=== PATIENT | male | born 1945 | race Caucasian/White ===

== ENCOUNTER 2016-04-18 12:46 | Emergency (ER) | payer BC, OTHER ==
[~2016-04-18] VITALS: Ht 177.8 cm; Wt 100.0 kg
[2016-04-18 12:54] VITALS: TEMP 36.3; Ht 177.8 cm; Wt 100.0 kg
[2016-04-18] MEDS ORDERED: CIPR-255 PO (14:25)
[2016-04-18] MEDS ORDERED: TAMS0.4C38 PO (14:25)
--- NOTE | 2016-04-18 14:43 | EMERGENCY ROOM VISIT NOTE ---
History Report prepared by Prateek: Phyllis Vogel Under the Supervision of: Dr. Selvin Petersen M.D. First contact with patient: 13:34 Chief Complaint: URINARY SYMPTOMS Stated Complaint: PAIN IN SCROTUM, UTI Nursing Triage Summary: having urinary retention had a recent catheter to empty bladder. that catheter was removed. pt now unable to void. was placed on 2 different antibiotics and given "maxflo" medications not working History of Present Illness The patient is a 70 year old male who presents to the Emergency Room with complaints of persistent urinary retention over the past week. Currently, his lower abdomen feels distended, and he rates his discomfort as a 10/10. Since the time of onset, the patient has only been able to void a minimal amount of urine at a time, though he constantly feels that he needs to urinate. He did visit his doctor and was placed on Ciprofloxacin as well as Maxflo as his UA was positive for infection, however, patient states that he has not had any improvement of his symptoms. This morning, as the patient was still unable to void, he visited his PCP's office. During his visit, the patient had relief after 1700 cc of urine was drained via catheter, however, he has not been able to urinate since the catheter was removed (since leaving PCP office), and he is now having suprapubic abdominal pain, as well as pain to his scrotum. He denies recent fevers, chills, chest pain, shortness of breath, nausea, vomiting or diarrhea. The patient does have a history of prostate disease, and he has followed up with a urologist in the past. Source of History: patient Onset: over the past week Position: abdomen Symptom Intensity: 9/10 Quality: other (urinary retention) Timing: other (persistent) Modifying Factors (Relieving): other (catheter) Associated Symptoms: + abdominal pain, No SOB, No chest pain, No chills, No diarrhea, No fevers, No nausea, No vomiting Review of Systems See HPI for pertinent positives & negatives. A total of 10 systems reviewed and were otherwise negative. Past Medical & Surgical Medical Problems: (1) Prostate disease (2) Rectal polyp Family History Abdominal aortic aneurysm (AAA) Social History Smoking Status: Never Smoker Marital Status: Housing Status: lives with significant other Occupation Status: employed Current/Historical Medications Scheduled Cholecalciferol (Vitamin D3), 5,000 UNITS PO DAILY Ciprofloxacin Hcl (Cipro), 500 MG PO BID Ciprofloxacin Hcl (Cipro), 1 TAB PO BID Doxycycline Hyclate (Vibramycin), 100 MG PO DAILY Fexofenadine Hcl (Adriane Allergy), 180 MG PO DAILY Naproxen (Naprosyn), 500 MG PO BID Tamsulosin Hcl (Flomax), 0.4 MG PO BID Tamsulosin Hcl (Flomax), 0.4 MG PO HS Allergies Coded Allergies: Metronidazole (Unverified Allergy, Unknown, HIVES WITH TOPICAL, 04/18/16) Physical Exam Vital Signs Date Time Temp Pulse Resp B/P Pulse Ox O2 Delivery O2 Flow Rate FiO2 04/18/16 14:51 89 18 143/79 94 Room Air 04/18/16 12:54 36.3 108 18 148/86 96 Physical Exam GENERAL: Patient is a healthy-appearing well-nourished HEAD: Normocephalic atraumatic EYES: Ocular movements intact pupils equal and react to light OROPHARYNX mucous membranes are moist no exudates present no erythema or edema present NECK: Supple no nuchal rigidity CHEST: Good equal expansion LUNGS: Clear and equal to auscultation CARDIAC: Normal S1 and S2 ABDOMEN: Tenderness to the suprapubic area. BACK: No CVA tenderness EXTREMITIES: No pain upon palpation normal muscle strength in all groups no clubbing cyanosis or edema NEURO: Patient is following commands is answering questions appropriately. Alert and oriented x3 Cranial Nerves 2-12 grossly intact Medical Decision & Procedures Laboratory Results Test 04/18/16 13:52 Urine Color YELLOW Urine Appearance CLEAR (CLEAR) Urine pH 5.5 (4.5-7.5) Urine Specific [place] 1.001 (1.000-1.030) Urine Protein NEG (NEG) Urine Glucose (UA) NEG (NEG) Urine Ketones NEG (NEG) Urine Occult Blood 3+ (NEG) Urine Nitrite NEG (NEG) Urine Bilirubin NEG (NEG) Urine Urobilinogen NEG (NEG) Urine Leukocyte Esterase TRACE (NEG) Urine WBC (Auto) 1-5 /hpf (0-5) Urine RBC (Auto) 0-4 /hpf (0-4) Urine Hyaline Casts (Auto) 0 /lpf (0-5) Urine Epithelial Cells (Auto) 0-5 /lpf (0-5) Urine Bacteria (Auto) 1+ (NEG) Urine Mucus PRESENT (NONE PRSENT) Date/Time Source Procedure Growth Status 04/18/16 13:52 Urine,Catheterized Urine Culture - Final NO GROWTH - LESS THAN 1,000 COLONIES/ML Complete Labs reviewed by ED physician. ED Course 1415: Past medical records reviewed. The patient was evaluated in room B10. A complete history and physical examination was performed. 1420: Patient had relief after a Kirby catheter was placed and 1200 cc of urine was drained. 1430: I discussed my findings of the patient's exam with him. Discharge instructions were also discussed at this time. He will follow up with urology. He verbalized his understanding and agreement with the treatment plan, and the patient is now ready for disposition. Medical Decision Differential diagnosis: Etiologies such as renal colic, appendicitis, diverticulitis, mesenteric ischemia, aortic pathology, infections, inflammatory bowel disease, PUD, biliary pathology, UTI, as well as others were entertained. This is a 70-year-old male who presents emergency department complaining of urinary retention. A Kirby catheter was placed with immediate improvement the patient's symptoms. The patient has been on a week supply of Cipro. Has I'm concerned about prostatitis I will continue the patient on Cipro for the next 3 weeks however I stressed the need for follow-up with urology. The patient is going to keep Kirby in place and will follow-up. Patient and are in agreement with the treatment plan. Impression Primary Impression: Urinary retention Scribe Attestation The scribe's documentation has been prepared under my direction and personally reviewed by me in its entirety. I confirm that the note above accurately reflects all work, treatment, procedures, and medical decision making performed by me. Departure Information Dispostion Home / Self-Care Prescriptions Tamsulosin Hcl (FLOMAX) 0.4 Mg Cap 0.4 MG PO HS for 21 Days, #21 CAP Prov: Selvin Petersen MD 04/18/16 Ciprofloxacin Hcl (CIPRO) 500 Mg Tab 1 TAB PO BID for 21 Days, #42 TAB Prov: Selvin Petersen MD 04/18/16 Referrals Srinivasan Schmidt M.D. (PCP) Forms HOME CARE DOCUMENTATION FORM, IMPORTANT VISIT INFORMATION Patient Instructions ED Catheter Care Kirby, ED Retention Urinary Male, My [facility] Additional Instructions NEED FOLLOW UP WITH UROLOGY Culture results are usually available in approx 48 hours You have been examined and treated today on an emergency basis only. This is not a substitute for, or an effort to provide, complete comprehensive medical care. It is impossible to recognize and treat all injuries or illnesses in a single emergency department visit. It is therefore important that you follow up closely with Dr Schmidt. Call as soon as possible for an appointment. Thank you for your time and consideration. I look forward to speaking with you again soon. Please don't hesitate to call us if you have any questions.
[2016-04-18 14:51] VITALS: BP 143/79; PULSE 89; O2SAT 94
[2016-04-18 14:59] LABS: URINE APPEARANCE CLEAR (CLEAR); URINE BILIRUBIN NEG (NEG); URINE COLOR YELLOW; URINE NITRITE NEG (NEG); URINE PH 5.5 (4.5-7.5); URINE SPECIFIC GRAVITY 1.001 (1.000-1.030); UROBILINOGEN NEG (NEG)
[2016-04-18 15:11] LABS: MANUAL MICROSCOPIC REQUIRED? NO; REVIEW REQ? YES
[2016-04-18 15:38] LABS: URINE EPITHELIAL CELL AUTO 0-5 /lpf (0-5)
[2016-04-18 15:39] LABS: URINE MUCUS PRESENT (NONE PRSENT)
[2016-04-18 15:45] LABS: ZZURINE CULT IF INDIC CATH YES
== END 2016-04-18 14:52 | disposition home or self-care (01) ==
LOC: C.EDB 12:46
DX: R33.9 Retention of urine, unspecified (principal); Z86.010 Personal history of colon polyps; Z79.899 Other long term (current) drug therapy

== ENCOUNTER 2016-04-26 01:17 | Emergency (ER) | payer BC, OTHER ==
[~2016-04-26] VITALS: Ht 177.8 cm; Wt 91.0 kg
[~2016-04-26 01:17] MED LIST: CIPR-255 PO; TAMS0.4C38 PO
[2016-04-26 01:20] VITALS: BP 176/111; PULSE 13; TEMP 36.5; O2SAT 96; Ht 177.8 cm; Wt 91.0 kg
[2016-04-26 01:49] LABS: URINE APPEARANCE CLEAR (CLEAR); URINE BILIRUBIN NEG (NEG); URINE COLOR YELLOW; URINE NITRITE NEG (NEG); URINE SPECIFIC GRAVITY 1.009 (1.000-1.030); UROBILINOGEN NEG (NEG); ZZURINE CULT IF INDIC CATH NO
[2016-04-26 01:55] LABS: MANUAL MICROSCOPIC REQUIRED? NO; REVIEW REQ? NO
--- NOTE | 2016-04-26 23:23 | EMERGENCY ROOM VISIT NOTE ---
History First contact with patient: 01:26 Chief Complaint: URINARY SYMPTOMS Stated Complaint: PAIN,URINARY TRACT BLOCKAGE Nursing Triage Summary: Patient c/o difficulty urinating. Catheter removed yesterday; had it for reoccuring UTI's. History of Present Illness The patient is a 70 year old male who presents to the Emergency Room with complaints of suprapubic abdominal pain and difficulty urinating tonight. The patient has been seen previously in the ER for similar symptoms, and is currently on a long-term dosing of Cipro for prostatitis. The patient went to his urologist earlier today, and he had a Kirby catheter removed lightheaded in place for about one week. The patient was able to void in their office following removal of the catheter, and they were attempting a trial without the catheter to see how well he would do. The patient states that after about 8 hours he had notable discomfort and only small amounts of voiding at home. The patient was not able to sleep tonight, prompting his presentation to the department. He rates his current discomfort a 9/10. Review of Systems More than 10 systems were reviewed and otherwise negative with the exception of history of present illness. Past Medical/Surgical History Medical Problems: (1) Prostate disease (2) Rectal polyp Family History Abdominal aortic aneurysm (AAA) Social History Smoking Status: Never Smoker Marital Status: Housing Status: lives with significant other Occupation Status: employed Current/Historical Medications Scheduled Cholecalciferol (Vitamin D3), 5,000 UNITS PO DAILY Ciprofloxacin Hcl (Cipro), 500 MG PO BID Ciprofloxacin Hcl (Cipro), 1 TAB PO BID Doxycycline Hyclate (Vibramycin), 100 MG PO DAILY Fexofenadine Hcl (Adriane Allergy), 180 MG PO DAILY Naproxen (Naprosyn), 500 MG PO BID Tamsulosin Hcl (Flomax), 0.4 MG PO BID Tamsulosin Hcl (Flomax), 0.4 MG PO HS Allergies Coded Allergies: Metronidazole (Unverified Allergy, Unknown, HIVES WITH TOPICAL, 04/18/16) Physical Exam Vital Signs Date Time Temp Pulse Resp B/P Pulse Ox O2 Delivery O2 Flow Rate FiO2 04/26/16 01:20 36.5 13 18 176/111 96 Room Air Physical Exam VITALS: Vitals are noted on the nurse's note and reviewed by myself. Vital signs stable. GENERAL: Well-developed, well-nourished, white male, who is in no acute distress and resting comfortably. Patient is cooperative with the examination. HEAD: Normocephalic atraumatic. HEART: Regular rate and rhythm without murmurs gallops or rubs. LUNGS: Clear to auscultation bilaterally without wheezes, rales or rhonchi. No retractions or accessory muscle use. ABDOMEN: Positive normal bowel sounds x 4. Soft with positive suprapubic tenderness. No CVA tenderness. No rebound or guarding. Medical Decision & Procedures Laboratory Results Test 04/26/16 01:40 Urine Color YELLOW Urine Appearance CLEAR (CLEAR) Urine pH 5.0 (4.5-7.5) Urine Specific [place] 1.009 (1.000-1.030) Urine Protein NEG (NEG) Urine Glucose (UA) NEG (NEG) Urine Ketones NEG (NEG) Urine Occult Blood NEG (NEG) Urine Nitrite NEG (NEG) Urine Bilirubin NEG (NEG) Urine Urobilinogen NEG (NEG) Urine Leukocyte Esterase NEG (NEG) ED Course Physical exam and history were performed. Nursing notes and EMR were reviewed. Patient appears to have difficulty urinating after his Kirby catheter was removed bladder scan was performed and he does have greater than 600 residual volume in the bladder. A Kirby catheter was placed to a leg bag, and the patient drained nearly 1000 mL of urine. This was sent for culture. The patient had complete resolution of his discomfort after placement of his catheter. I suspect his pain is from the urinary tension. The patient is to continue his Cipro and call urology in the morning for further care and management. He is just voiced understanding. The chart was completed utilizing [employer] Speech Voice Recognition Software. Grammatical errors, random word insertions, pronoun errors, and incomplete sentences are an occasional consequence of this system due to software limitations, ambient noise, and hardware issues. Any formal questions or concerns about the content, text, or information contained within the body of this dictation should be directly addressed to the provider for clarification. . Medical Decision Differential diagnosis includes, but is not limited to: UTI, prostatitis, BPH, urinary obstruction, and others Impression Primary Impression: Symptoms involving urinary system Additional Impression: Prostate disease Departure Information Dispostion Home / Self-Care Condition GOOD Referrals Srinivasan Schmidt M.D. (PCP) Forms HOME CARE DOCUMENTATION FORM, IMPORTANT VISIT INFORMATION Patient Instructions My [facility] Additional Instructions You were seen and evaluated today on an emergency basis only. This is not a substitute for, or an effort to provide, complete comprehensive medical care. It is not possible to recognize and treat all injuries or illnesses in a single emergency department visit. For this reason it is recommended that you followup with your urology office by telephone in the morning to arrange a follow-up visit. Continue your medications as prescribed. You are welcome to return to the emergency department anytime with new, worsening, or concerning symptoms. Problem Qualifiers
== END 2016-04-26 02:20 | disposition home or self-care (01) ==
LOC: C.EDB 01:18
DX: R30.0 Dysuria (principal); N41.9 Inflammatory disease of prostate, unspecified; Z79.899 Other long term (current) drug therapy

== ENCOUNTER 2016-05-07 06:40 | Emergency (ER) | payer BC, OTHER ==
[~2016-05-07] VITALS: Ht 177.8 cm; Wt 91.9 kg
[2016-05-07 06:45] VITALS: TEMP 36.5; Ht 177.8 cm; Wt 91.9 kg
[2016-05-07] MEDS ORDERED: KETOROLAC TROMETHAMINE 60 MG/2 ML VIAL IM STA (07:09)
[2016-05-07] MEDS ORDERED: FINA5TAB PO (07:10)
[2016-05-07] MEDS ORDERED: KETOROLAC TROMETHAMINE 15 MG/ML VIAL IM ONE (07:15)
[2016-05-07] MEDS ORDERED: KETOROLAC TROMETHAMINE 60 MG/2 ML VIAL ONE (07:25)
--- NOTE | 2016-05-07 07:30 | EMERGENCY ROOM VISIT NOTE ---
ED Visit Note First contact with patient: 06:43 Patient evaluated with resident. 71-year-old with enlarged prostate and recent UTI on Cipro presents to emergency department for Kirby change. He denies any systemic complaints, no fevers no chills no flank pain and hematuria. Kirby was changed without incident and patient provided leg bag. On examination at 7: 30 AM patient appears comfortable and QUESTIONS were answered.
--- NOTE | 2016-05-07 07:32 | EMERGENCY ROOM VISIT NOTE ---
History First contact with patient: 06:45 Chief Complaint: CATHETER REPLACEMENT Stated Complaint: BLOCKED DUPREE CATHETER - EXTREME PAIN History of Present Illness The patient is a 71 year old male who presents to the Emergency Room with complaints of catheter obstruction. Patient has had ongoing issues with urinary retention secondary to enlarged prostate. He has been catheterized for the past 1 month after having a UTI. He has been having his catheter managed by his PCP and his urologist. He is currently on treatment for a UTI with Ciprofloxacin. He also takes Tamsulosin and Finasteride. Today he complains of low catheter output for the past 1 day. He has also had increasing aching 9/10 suprapubic pain that does not radiate to the back or flanks. He denies pus or blood in his catheter bag. He did have his catheter obstructed 1 week ago and it was irrigated in his PCPs office. He notes that he is due to travel in the next week and was suppose to have the catheter replaced in the next 3 days. Otherwise he has no symptoms. He has not had any fevers. His appetite has been good. He has been eating and drinking at baseline. He has not abdominal symptoms, no diarrhea and no constipation. Review of Systems A 10 point review of systems was negative unless stated above. Past Medical/Surgical History Medical Problems: (1) Prostate disease (2) Rectal polyp Family History Abdominal aortic aneurysm (AAA) Colorectal Ca - Father Social History Smoking Status: Never Smoker Smokeless Tobacco Use: No Alcohol Use: occasionally (1 unit wine per week) Drug Use: none Marital Status: Housing Status: lives with significant other Occupation Status: retired Current/Historical Medications Scheduled Cholecalciferol (Vitamin D3), 5,000 UNITS PO DAILY Ciprofloxacin Hcl (Cipro), 500 MG PO BID Doxycycline Hyclate (Vibramycin), 100 MG PO DAILY Fexofenadine Hcl (Adriane Allergy), 180 MG PO DAILY Finasteride (Proscar), 5 MG PO DAILY Naproxen (Naprosyn), 500 MG PO BID Tamsulosin Hcl (Flomax), 0.4 MG PO BID Allergies Coded Allergies: Metronidazole (Verified Allergy, Intermediate, HIVES WITH TOPICAL, 05/07/16) Physical Exam Vital Signs Date Time Temp Pulse Resp B/P Pulse Ox O2 Delivery O2 Flow Rate FiO2 05/07/16 06:45 36.5 94 18 140/84 99 Room Air Pain Rating (0-10): 9 Physical Exam Constitutional: Vital signs as above were reviewed. Eyes: Pupils equal, round, and reactive to light. Extraocular muscles are intact. No proptosis. No photophobia. ENT: Mucous membranes are moist. Oropharynx is clear. No sinus tenderness. TMs are clear bilaterally. Cardiovascular: Heart with a regular rate and rhythm. Pulses are palpable and symmetric in all 4 extremities. No pedal edema appreciated. Respiratory: Lungs clear to auscultation bilaterally. No wheezes, rales, or rhonchi appreciated. No accessory muscle use. No retractions. No increased work of breathing. GI: Abdomen soft, nontender, nondistended. Normal active bowel sounds. No abdominal hernias appreciated. No rebound. No guarding. : No CVA tenderness appreciated. Suprapubic tenderness to palpation Uncircumcised penis, dupree catheter in place Catheter bag contents; minimal output; clear, no pus, no blood, no clot Musculoskeletal: No midline cervical or vertebral tenderness. No gross deformities. No bony tenderness. No calf swelling or tenderness. Integumentary: Warm, dry, no rashes appreciated. Neurological: Patient awake, alert, and oriented x 3. Cranial nerves two through 12 grossly intact. Lymph: No cervical lymphadenopathy appreciated. Medical Decision & Procedures Medications Administered Medications (Trade) Dose Ordered Sig/Adrianna Route Start Time Stop Time Status Last Admin Dose Admin Ketorolac Tromethamine (Toradol Inj) 60 mg STK-MED ONCE .ROUTE 05/07/16 07:25 05/07/16 07:27 DC 05/07/16 07:29 60 MG Procedure Bladder scan - 650 cc ED Course 06:45 - Patient evaluated Orders for Bladder Scan, Toradol 15 mg IM, Replace Catheter 07:15 - Precepted with Dr. Deepak Mccarthy 07:20 - Catheter replaced; clear yellow urine output noted Patient notes immediate relief 15 mg Toradol administered 07:30 - Discharge paperwork completed Patient discharged in stable condition Medical Decision A thorough history was obtained, physical examination performed and the EMR was reviewed. The case was reviewed multiple times over with Dr. Deepak Mccarthy during the patient's ED visit. Patient presents with sudden onset of low Dupree catheter output as well as suprapubic pain. Differentials include catheter obstruction, UTI, Prostatitis, dehydration. Bladder scan did show 650 of residual volume. Changing of catheter noted immediate output of clear yellow urine. We did not repeat UA as patient is currently on antibiotic treatment and he does not have signs or symptoms of new or worsening infection. Patient did require small amount of Toradol for pain control. He did note relief from a combination of Toradol and replacement of the Dupree catheter. Patient was discharged in stable condition. He was advised to consider intermitted self-catheterization in case he does have access to a medical facility. He was also discharged with a copy of the Dupree catheter care instructions. Impression Primary Impression: Obstructed Dupree catheter Additional Impression: Enlarged prostate Departure Information Dispostion Home / Self-Care Condition GOOD Referrals Srinivasan Schmidt M.D. (PCP) Patient Instructions ED Catheter Care K[place]i, [facility] Additional Instructions We replaced your Dupree Catheter in the ED today. You did have some pain so we treated you with an intramuscular injection of Toradol (a non-steroidal anti- inflammatory) Because you are already on antibiotics for a urinary tract infection, we will not make any changes regarding this. Please continue all your other usual medicines. You mentioned upcoming travel so we would recommend you discuss self-catheterization with your PCP or urologist in case this becomes an issue while abroad. If your symptoms fail to improve, acutely worsen, please seek medical attention immediately by either calling your primary care provider or going to your nearest emergency department. Otherwise, please see your primary care provider in 3-5 days to ensure that your symptoms continue to improve. It was a pleasure to be involved in your care and we wish you all the best. Problem Qualifiers
[2016-05-07 07:40] VITALS: BP 130/75; PULSE 85; O2SAT 99
[2016-05-07] MEDS ORDERED: FEXO1TAB49 PO (13:22)
[2016-05-07] MEDS ORDERED: CIPR-255 PO (13:22)
[2016-05-07] MEDS ORDERED: NAPR-1169 PO (13:22)
[2016-05-07] MEDS ORDERED: TAMS0.4C38 PO (13:22)
[2016-05-07] MEDS ORDERED: DOXY100C2 PO (13:22)
[2016-05-07] MEDS ORDERED: CHOL20007 PO (13:22)
== END 2016-05-07 07:41 | disposition home or self-care (01) ==
LOC: C.EDB 06:41
DX: T83.098A Other mechanical complication of other urinary catheter, initial encounter (principal); X58.XXXA Exposure to other specified factors, initial encounter; N40.1 Benign prostatic hyperplasia with lower urinary tract symptoms; R10.30 Lower abdominal pain, unspecified; Z86.010 Personal history of colon polyps; Z82.49 Family history of ischemic heart disease and other diseases of the circulatory system; Z80.0 Family history of malignant neoplasm of digestive organs

== ENCOUNTER 2016-06-04 03:52 | Emergency (ER) | payer BC ==
[~2016-06-04] VITALS: Ht 165.1 cm; Wt 92.8 kg
[~2016-06-04 03:52] MED LIST changes: +CHOL20007 PO; +DOXY100C2 PO; +FEXO1TAB49 PO; +FINA5TAB PO; +NAPR-1169 PO
[2016-06-04 03:59] VITALS: TEMP 36.4; Ht 165.1 cm; Wt 92.8 kg
--- NOTE | 2016-06-04 04:33 | EMERGENCY ROOM VISIT NOTE ---
History Report prepared by Prateek: Audi Mcgregor Under the Supervision of: Dr. Vargas Quiros M.D. First contact with patient: 04:04 Chief Complaint: URINARY SYMPTOMS Stated Complaint: NOT URINATING,HIGH PAIN IN ABDOMEN History of Present Illness The patient is a 71 year old male who presents to the Emergency Room with complaints of worsening urinary retention and lower abdominal pain that began a couple days prior to arrival. The patient is also complaining of rectal pain and constipation. This is the fourth time the patient has come to the emergency department for urinary retention. He had a Kaplan catheter in place for the last month, and had it removed a couple days ago. The patient is currently taking Naprosyn for his symptoms. He denies any recent traumatic events, or fevers. Source of History: patient Onset: A couple days prior to arrival Position: other (Bladder) Quality: other (Urinary retention) Timing: worsening Associated Symptoms: + abdominal pain, No fevers Review of Systems See HPI for pertinent positives & negatives. A total of 10 systems reviewed and were otherwise negative. Past Medical & Surgical Medical Problems: (1) Prostate disease (2) Rectal polyp Family History Abdominal aortic aneurysm (AAA) Social History Smoking Status: Never Smoker Alcohol Use: occasionally Drug Use: none Marital Status: Housing Status: lives with significant other Occupation Status: retired Current/Historical Medications Scheduled Cholecalciferol (Vitamin D3), 5,000 UNITS PO DAILY Ciprofloxacin Hcl (Cipro), 500 MG PO BID Docusate Sodium (Colace), 1 CAP PO BID Doxycycline Hyclate (Vibramycin), 100 MG PO DAILY Fexofenadine Hcl (Adriane Allergy), 180 MG PO DAILY Finasteride (Proscar), 5 MG PO DAILY Naproxen (Naprosyn), 500 MG PO BID Tamsulosin Hcl (Flomax), 0.4 MG PO BID Allergies Coded Allergies: Metronidazole (Verified Allergy, Intermediate, HIVES WITH TOPICAL, 06/04/16) Physical Exam Vital Signs Date Time Temp Pulse Resp B/P Pulse Ox O2 Delivery O2 Flow Rate FiO2 06/04/16 03:59 36.4 88 20 149/89 98 Room Air Physical Exam GENERAL: Patient is very uncomfortable appearing and in moderate to severe distress. HEENT: No acute trauma, normocephalic atraumatic, mucous membranes moist, no nasal congestion, no scleral icterus. NECK: No stridor, no adenopathy, no meningismus, trachea is midline. LUNGS: No dyspnea. Clear to auscultation and equal bilaterally. No wheeze, no rhonchi. HEART: Regular rate and rhythm. No murmurs, rubs, gallops appreciated. ABDOMEN: There is mild tenderness to palpation over the suprapubic area. Full bladder to palpation. Soft, bowel sounds positive, no peritonitis. BACK: No midline tenderness, no CVA tenderness EXTREMITIES: Normal motion all extremities, no cyanosis, no edema. NEUROLOGIC: Alert and oriented, no acute motor or sensory deficits, no focal weakness, cranial nerves grossly intact. SKIN: No rash, no jaundice, no diaphoresis. Medical Decision & Procedures Laboratory Results Test 06/04/16 00:00 Urine Color YELLOW Urine Appearance CLEAR (CLEAR) Urine pH 5.0 (4.5-7.5) Urine Specific [place] 1.008 (1.000-1.030) Urine Protein NEG (NEG) Urine Glucose (UA) NEG (NEG) Urine Ketones NEG (NEG) Urine Occult Blood NEG (NEG) Urine Nitrite NEG (NEG) Urine Bilirubin NEG (NEG) Urine Urobilinogen NEG (NEG) Urine Leukocyte Esterase TRACE (NEG) Urine WBC (Auto) /hpf (0-5) Urine RBC (Auto) /hpf (0-4) Urine Hyaline Casts (Auto) /lpf (0-5) Urine Epithelial Cells (Auto) /lpf (0-5) Urine Bacteria (Auto) (NEG) Urine RBC 0-4 /hpf (0-4) Urine WBC 5-10 /hpf (0-5) Urine Epithelial Cells 0-5 /lpf (0-5) Urine Bacteria NEG (NEG) Urine Yeast BUD W/ HYPHAE (NONE PRSENT) Laboratory results as reviewed by me. Medications Administered Medications (Trade) Dose Ordered Sig/Adrianna Route Start Time Stop Time Status Last Admin Dose Admin Magnesium Citrate (Citrate Of Magnesia Soln) 296 ml NOW ONCE PO 06/04/16 05:45 06/04/16 05:46 DC 06/04/16 06:01 296 ML Fluconazole (Diflucan Tab) 150 mg NOW ONCE PO 06/04/16 05:45 06/04/16 05:46 DC 06/04/16 06:01 150 MG ED Course 0406: The patient was evaluated in room B6. A complete history and physical exam was performed. 0545: Ordered Fluconazole 150 mg PO, Magnesium Citrate 296 mL PO. 0551: I reevaluated the patient at this time. He had 1500 mL of urine in Kaplan bag. He states that he will call his urologist to discuss antibiotics, length of Kaplan placement, and if she should be using home straight catheterizations. I discussed results and discharge instructions: he verbalized understanding and agreement. The patient is ready for discharge. Medical Decision 71 yr old male arrives with inability to urinate. Complicated story with Kaplan in place for most of last 2 months due to urinary retention of unclear etiology , initially felt to be UTI, then possibly prostate. Following closely with Urologist in [place] with removal of kaplan on . Now having constipation as well. No back pain nor neuro deficits otherwise thus I do not feel emergent imaging required, and already has MRI planned as outpatient of Prostate. Kaplan placed with 1.5 L UOP. Will clear out bowels with MagCitrate followed by BID colace (notes constipation has been chronic issue). Stable and looks well. Aware RTED if further issues. Discussed need to follow up with Urologist to discuss plan. As some yeast in UA will give diflucan to take at home. Impression Primary Impression: Acute urinary retention Additional Impressions: Constipation Yeast UTI Scribe Attestation The scribe's documentation has been prepared under my direction and personally reviewed by me in its entirety. I confirm that the note above accurately reflects all work, treatment, procedures, and medical decision making performed by me. Departure Information Dispostion Home / Self-Care Prescriptions Docusate Sodium (COLACE) 100 Mg Cap 1 CAP PO BID for 15 Days, #30 CAP Prov: Vargas Quiros M.D. 06/04/16 Referrals Srinivasan Schmidt M.D. (PCP) Patient Instructions ED Catheter Care Kaplan, My [facility] Additional Instructions Call your urologist today to discuss... Time that Kaplan stays in place Antibiotics Whether you should be doing self catheterizations Follow up. Problem Qualifiers Additional Impressions: Constipation Constipation type: unspecified constipation type Qualified Codes: K59.00 - Constipation, unspecified
[2016-06-04 04:42] LABS: URINE APPEARANCE CLEAR (CLEAR); URINE BILIRUBIN NEG (NEG); URINE COLOR YELLOW; URINE NITRITE NEG (NEG); URINE SPECIFIC GRAVITY 1.008 (1.000-1.030); UROBILINOGEN NEG (NEG)
[2016-06-04 04:49] LABS: MANUAL MICROSCOPIC REQUIRED? YES; REVIEW REQ? NO
[2016-06-04 05:08] LABS: URINE RBC 0-4 /hpf (0-4)
[2016-06-04 05:09] LABS: URINE BACTERIA NEG (NEG)
[2016-06-04 05:10] LABS: ZZURINE CULT IF INDIC CATH YES
[2016-06-04] MEDS ORDERED: DOCU-94 PO (05:36)
[2016-06-04] MEDS ORDERED: MAGNESIUM CITRATE 296 ML/BTL PO ONE (05:45)
[2016-06-04] MEDS ORDERED: FLUCONAZOLE 50 MG TAB PO ONE (05:45)
[2016-06-04 06:16] VITALS: BP 132/81; PULSE 81; O2SAT 99
--- NOTE | 2016-06-06 15:12 | Pharmacy Progress Note ---
ED Pharmacist Culture FollowUp Date of Service: Jun 06, 2016. Patient seen in the ER on 06/04/16 for urinary retention + lower abdominal pain. Patient has a h/o urinary retention, BPH, and has had a Kirby cath in place for ~1 month but was removed ~2 days prior to ER presentation. Patient denied fevers at visit. He did not have classic symptoms of UTI as he could not urinate (therefore no dysuria, frequency). He did have suprapubic tenderness on PE along w/ bladder fullness. The patient was straight cath for 1.5L urine. UA and Urine Cx performed. UA = clear, - N, trace LE, 5-10 WBC, 0-5 epis, + budding yeast. Urine Cx is growing yeast not dana albicans. The patient was given a dose of Diflucan in the ER and a second dose to take at home. Diflucan however would not cover this organism. Difficult to say whether this organism represents benign colonization vs fungiuria w/ cystitis as UTI symptoms not present due to retention and cath placement. Case reviewed w/ Dr Seay. I contacted the patient at home. The patient still denies fever and chills. He has a catheter in place therefore not able to report typically UTI symptoms. The patient told me he sees Myesha MEJIA at [facility] ([phone]). I contact the Urology office and gave a brief summary of his last ER visit and forwarded the UA and Urine Cx results to the office via fax ([phone]) per Dr Seay's request. The Urology office stated they would f/u with the patient.
== END 2016-06-04 06:19 | disposition home or self-care (01) ==
LOC: C.EDB 03:54
DX: K59.00 Constipation, unspecified (principal); N39.0 Urinary tract infection, site not specified; B37.9 Candidiasis, unspecified; Z79.899 Other long term (current) drug therapy

== ENCOUNTER → 2017-02-06 | Outpatient (CLI) | payer BC ==
--- NOTE | 2017-02-06 14:32 | DIAGNOSTIC IMAGING REPORT ---
CHEST 2 VIEWS ROUTINE HISTORY: 71 years-old Male R09.89 chronic dyspnea COMPARISON: None available TECHNIQUE: PA and lateral views of the chest FINDINGS: Cardiomediastinal and hilar silhouettes are within normal limits. There is no pneumothorax, pleural effusion, focal airspace consolidation or overt pulmonary edema. Bones of the chest appear grossly intact. There are moderate degenerative changes of the shoulders, only partially imaged. IMPRESSION: No acute cardiopulmonary process. The above report was generated using voice recognition software. It may contain grammatical, syntax or spelling errors. Electronically signed by: Michael Blackman M.D. 02/06/2017 2:31 PM Dictated Date/Time: 02/06/2017 2:29 PM
== END | disposition home or self-care (01) ==
LOC: C.RAD1850 14:18
PROVIDERS: ATTEND Student in an Organized Health Care Education/Training Program
DX: R09.89 Other specified symptoms and signs involving the circulatory and respiratory systems (principal)

== ENCOUNTER 2021-07-05 08:35 | Observation (INO) ==
--- NOTE | 2021-06-16 10:08 | PAT Medication Instructions ---
Medication Instructions Date of Service June 16, 2021 Home Medications acetaminophen 500 mg capsule 500 mg PO BID azelaic acid 15 % topical gel 1 applic TOPICAL BID cholecalciferol (vitamin D3) 125 mcg (5,000 unit) tablet (Vitamin D3) 125 mcg PO QAM ciclopirox 0.77 % topical cream 1 applic TOPICAL BID clindamycin phosphate 1 % topical solution 1 applic TOPICAL DAILY PRN doxycycline hyclate 50 mg tablet 50 mg PO QPM finasteride 5 mg tablet 5 mg PO QAM fluoxetine 20 mg tablet 40 mg PO QAM hydrocortisone 2.5 % topical cream 1 applic TOPICAL BID PRN levocetirizine 5 mg tablet (Xyzal) 5 mg PO QPM mometasone 50 mcg/actuation nasal spray 2 spray INTRANASAL DAILY PRN multivitamin 1 tab PO QAM omeprazole 20 mg tablet,delayed release 20 mg PO QAM rosuvastatin 10 mg tablet 10 mg PO QPM tamsulosin 0.4 mg capsule 0.4 mg PO BID STOP taking 24 hours before surgery azelaic acid 15 % topical gel 1 applic TOPICAL BID ciclopirox 0.77 % topical cream 1 applic TOPICAL BID clindamycin phosphate 1 % topical solution 1 applic TOPICAL DAILY PRN hydrocortisone 2.5 % topical cream 1 applic TOPICAL BID PRN DO NOT take the morning of surgery cholecalciferol (vitamin D3) 125 mcg (5,000 unit) tablet (Vitamin D3) 125 mcg PO QAM multivitamin 1 tab PO QAM Take morning of surgery With a small sip of water, OTHERWISE NOTHING TO EAT OR DRINK AFTER MIDNIGHT: acetaminophen 500 mg capsule 500 mg PO BID (okay to take up to 4 hours prior to surgery if needed) finasteride 5 mg tablet 5 mg PO QAM fluoxetine 20 mg tablet 40 mg PO QAM mometasone 50 mcg/actuation nasal spray 2 spray INTRANASAL DAILY PRN (if needed) omeprazole 20 mg tablet,delayed release 20 mg PO QAM tamsulosin 0.4 mg capsule 0.4 mg PO BID Take evening before surgery acetaminophen 500 mg capsule 500 mg PO BID doxycycline hyclate 50 mg tablet 50 mg PO QPM levocetirizine 5 mg tablet (Xyzal) 5 mg PO QPM mometasone 50 mcg/actuation nasal spray 2 spray INTRANASAL DAILY PRN (if needed) rosuvastatin 10 mg tablet 10 mg PO QPM tamsulosin 0.4 mg capsule 0.4 mg PO BID Other Notes If you have any questions please call us at [phone] or [phone] or [phone] or [phone]
--- NOTE | 2021-06-19 09:39 | Anesthesiology Consultation ---
Date of Service June 19, 2021 Assessment & Plan (1) Encounter for pre-operative examination: - Patient acceptable risk for surgery pending surgeon-ordered PCP preop evaluation scheduled 06/26 (Dr. Artis). - COVID screening: Per assessment on 06/19: Travel screen negative, no known COVID-19 positive contacts or current COVID-19 related symptoms. Patient vaccinated. Surgeon arranging preop COVID testing. Awaiting results. Chart Review Chart Review: Patient seen in Pre Admission Testing Teaching & Discussion Pre-Anesthesia Teaching/Discussion Notes: Instructed NPO after midnight before surgery,except medications with 15 cc of water. Medication instructions provided according to the PAT guidelines. History Surgery Operation Date: 07/05/21 11:20 Proposed Procedures p Right Total Shoulder Arthroplasty - Adebayo Raymond MD Height/Weight Height: 5 ft 9 in Weight: 95.7 kg Allergies Allergy/AdvReac Type Severity Reaction Status Date / Time metronidazole [From Metrogel] Allergy Rash Verified 06/15/21 12:39 midazolam [From Versed] AdvReac Confusion Verified 06/15/21 12:39 Medications Home Medications Medication Instructions Recorded Confirmed Last Taken acetaminophen 500 mg capsule 500 mg PO BID 06/15/21 06/15/21 Unknown azelaic acid 15 % topical gel 1 applic TOPICAL BID 06/15/21 06/15/21 Unknown cholecalciferol (vitamin D3) 125 125 mcg PO QAM 06/15/21 06/15/21 Unknown mcg (5,000 unit) tablet (Vitamin D3) ciclopirox 0.77 % topical cream 1 applic TOPICAL BID 06/15/21 06/15/21 Unknown clindamycin phosphate 1 % topical 1 applic TOPICAL DAILY PRN 06/15/21 06/15/21 Unknown solution doxycycline hyclate 50 mg tablet 50 mg PO QPM 06/15/21 06/15/21 Unknown finasteride 5 mg tablet 5 mg PO QAM 06/15/21 06/15/21 Unknown fluoxetine 20 mg tablet 40 mg PO QAM 06/15/21 06/15/21 Unknown hydrocortisone 2.5 % topical cream 1 applic TOPICAL BID PRN 06/15/21 06/15/21 Unknown levocetirizine 5 mg tablet (Xyzal) 5 mg PO QPM 06/15/21 06/15/21 Unknown mometasone 50 mcg/actuation nasal 2 spray INTRANASAL DAILY PRN 06/15/21 06/15/21 Unknown spray multivitamin 1 tab PO QAM 06/15/21 06/15/21 Unknown omeprazole 20 mg tablet,delayed 20 mg PO QAM 06/15/21 06/15/21 Unknown release rosuvastatin 10 mg tablet 10 mg PO QPM 06/15/21 06/15/21 Unknown tamsulosin 0.4 mg capsule 0.4 mg PO BID 06/15/21 06/15/21 Unknown Past Medical History Medical History BPH (benign prostatic hyperplasia) Depression GERD (gastroesophageal reflux disease) Glaucoma Osteoarthritis Sleep apnea CPAP (compliant) Exercise / Class Metabolic Activity II 4-5 Yardwork/Stairs/Walk up hill Past Family History Family History Other No family history of adverse response to anesthesia Past Surgical History Surgical History History of colonoscopy History of tonsillectomy Status post glaucoma surgery Past Anesthesia History No Family Hx of Anesthesia Complications and Other ("Goofy" with versed) History of PONV No Hx of PONV and No Hx of Motion Sickness Social History Smoking Status: Never smoker Do You Dip or Chew Tobacco: No Hx Alcohol Use: Yes Alcohol type: wine alcohol intake frequency: 0-2 drinks per day (1 drink/day) Hx Substance Use: No substance use type: does not use Review of Systems Patient denies chest pain, shortness of breath, dyspnea on exertion, fever, chills, cough, wheezing, palpitations. Physical Exam Vital Signs VITALS BP 116/79 P 74 TEMP 97.8 SP02 95%RA RESP 18 PHYSICAL Full cervical extension range of motion. Full TMJ range of motion. TMD 3 finger breaths Mallampati Score 3 Dentition: several missing molars. several crowns Lungs: clear throughout to auscultation Cardiac: regular rate and rhythm, no murmurs noted Spine: normal Carotid arteries: negative bruit Extremities: no edema Lab Results Anesthesia Preop Results Results Anesthesia Widget: WBC 7.75 K/uL (4.8-10.8) 06/19/21 Hgb 13.8 g/dL (14.0-18.0) L 06/19/21 Hct 41.4 % (42-52) L 06/19/21 Plt 227 K/uL (130-400) 06/19/21 Na 140 mmol/L (136-145) 06/19/21 K 4.4 mmol/L (3.5-5.1) 06/19/21 Cl 108 mmol/L (98-107) H 06/19/21 CO2 28 mmol/L (21-32) 06/19/21 BUN 27 mg/dl (6-23) H 06/19/21 Creat 0.82 mg/dl (0.6-1.4) 06/19/21 Glucose Level 117 mg/dl (70-99(Fasting)) H 06/19/21 PT 10.9 Seconds (9.0-12.0) 06/19/21 PTT 30.2 Seconds (21.0-31.0) 06/19/21 INR 1.0 (0.9-1.1) 06/19/21 Urine Color Dark Yellow 06/19/21 Urine Appearance Clear (Clear) 06/19/21 Urine pH 5.0 (4.5-7.5) 06/19/21 Urine Specific [place] 1.029 (1.000-1.030) 06/19/21 Urine Protein Negative (Negative) 06/19/21 Urine Glucose (UA) Negative (Negative) 06/19/21 Urine Ketones Negative (Negative) 06/19/21 Urine Blood 2+ (Negative) H 06/19/21 Urine Nitrite Positive (Negative) A 06/19/21 Urine Bilirubin Negative (Negative) 06/19/21 Urine Urobilinogen Negative (Negative) 06/19/21 Urine Leukocyte Esterase 1+ (Negative) H 06/19/21 Urine WBC (Auto) 10-30 /hpf (0-5) H 06/19/21 Urine RBC (Auto) 0-4 /hpf (0-4) 06/19/21 Urine Hyaline Casts (Auto) 1-5 /lpf (0-5) 06/19/21 Urine Epithelial Cells (Auto) 0-5 /lpf (0-5) 06/19/21 Urine Bacteria (Auto) 2+ (Negative) H 06/19/21 Blood Type A Positive 06/19/21 Antibody Screen NEGATIVE 06/19/21 Lab Comments: Surgeon's office made aware of abnormal UA* Testing Electrocardiogram Date: 10/16/20 Sinus rhythm at 60 bpm. Possible LAE. RSR' or QR pattern in V1 suggests R VCD. Chest X-Ray Date: 10/17/20 FINDINGS: Lung volumes are normal. Minimal left basilar opacity represents atelectasis. There is no pneumothorax or pleural effusion. Cardiac size is normal. Mediastinal contours are normal. There is no evidence for pulmonary edema. IMPRESSION: No acute cardiopulmonary findings.
--- NOTE | 2021-07-03 08:00 | History & Physical Report ---
Date of Service July 03, 2021 Assessment & Plan (1) Degenerative joint disease, shoulder, right: Plan: Postoperative prescriptions for Percocet will be provided at discharge from the hospital. Anticipate discharge to home with home health services. This will be done on a 23-hour observation status, unless there is any issue with bed availability and then he is willing to go as an outpatient total joint. Informed written consent was obtained today by Dr. Raymond. The patient is aware of the COVID-19 risks associated with surgery. He is currently asymptomatic of any COVID-19 symptoms. He will obtain nasal swab testing 2 days prior to surgery. PDMP was checked and there are no concerning findings. He will see his PCP for medical clearance. He is scheduled to see PAT today for preoperative lab work, EKG, and chest x-ray. History of Present Illness Chief Complaint: Right shoulder pain Primary Care Provider: Breann Artis MD This 76-year-old male presents for his preoperative history and physical. He is scheduled to undergo a right total shoulder arthroplasty versus CTA head implant on 07/05/2021. The patient has had right shoulder pain for the last 3-4 years. It has become worse with time. He notes some loss of motion. Pain has increased with motion. He describes grinding in the shoulder. It occasionally radiates down the arm to his elbow. He has tried physical therapy, but pain persists. He has tried Tylenol without lasting improvement. Right hand dominant. No numbness or tingling. No other complaints. Preoperative imaging has been obtained. Allergies Allergy/AdvReac Type Severity Reaction Status Date / Time metronidazole [From Metrogel] Allergy Rash Verified 06/15/21 12:39 midazolam [From Versed] AdvReac Confusion Verified 06/15/21 12:39 Home Medications Medication Instructions Recorded Confirmed Type acetaminophen 500 mg capsule 500 mg PO BID 06/15/21 06/15/21 History azelaic acid 15 % topical gel 1 applic TOPICAL BID 06/15/21 06/15/21 History cholecalciferol (vitamin D3) 125 125 mcg PO QAM 06/15/21 06/15/21 History mcg (5,000 unit) tablet (Vitamin D3) ciclopirox 0.77 % topical cream 1 applic TOPICAL BID 06/15/21 06/15/21 History clindamycin phosphate 1 % topical 1 applic TOPICAL DAILY PRN 06/15/21 06/15/21 History solution doxycycline hyclate 50 mg tablet 50 mg PO QPM 06/15/21 06/15/21 History finasteride 5 mg tablet 5 mg PO QAM 06/15/21 06/15/21 History fluoxetine 20 mg tablet 40 mg PO QAM 06/15/21 06/15/21 History hydrocortisone 2.5 % topical cream 1 applic TOPICAL BID PRN 06/15/21 06/15/21 History levocetirizine 5 mg tablet (Xyzal) 5 mg PO QPM 06/15/21 06/15/21 History mometasone 50 mcg/actuation nasal 2 spray INTRANASAL DAILY PRN 06/15/21 06/15/21 History spray multivitamin 1 tab PO QAM 06/15/21 06/15/21 History omeprazole 20 mg tablet,delayed 20 mg PO QAM 06/15/21 06/15/21 History release rosuvastatin 10 mg tablet 10 mg PO QPM 06/15/21 06/15/21 History tamsulosin 0.4 mg capsule 0.4 mg PO BID 06/15/21 06/15/21 History Past Med/Surg History Medical History BPH (benign prostatic hyperplasia) Depression GERD (gastroesophageal reflux disease) Glaucoma Osteoarthritis Sleep apnea CPAP (compliant) Surgical History History of colonoscopy History of tonsillectomy Status post glaucoma surgery Family History (Updated 07/03/21 @ 07:58 by Valdez Anaya PA-C) Other Cancer Diabetes Heart disease No family history of adverse response to anesthesia Stroke Social History Smoking Status: Never smoker Second Hand Exposure: No; Hx Alcohol Use: Yes Alcohol type: wine Hx Substance Use: No Preferred Language: Malawian Communication Ability: Effective Beef Farmer Required: No Beliefs That Will Affect Care: None Current Living Situation: Spouse Feels Safe at Home: Yes Assistive Devices: Glasses Review of Systems Review of Systems: All systems reviewed & are unremarkable except as noted in HPI & below A total of 10 systems were reviewed. Physical Exam Physical Exam: Vitals: Height 177.3 cm, weight 97.5 kilograms, BMI 31, temperature 36.5, BP 130/72, pulse 76, respirations 16, O2 sat 97% on room air. General: Well-developed, well-nourished, elderly white male in no acute distress. Sitting in a chair. Alert and oriented. Skin: Warm and dry with good turgor. No rashes or lesions. No ecchymosis or erythema. HEENT: Normocephalic, atraumatic. Eyes: PERRLA, EOMI. Nares and oropharynx exams deferred due to COVID precautions. Heart: RRR. No MGR. Lungs: Clear to auscultation bilaterally. No crackles, rhonchi or wheezing. Good air movement. Abdomen: Bowel sounds present x4, soft, nontender. No organomegaly. No masses. Musculoskeletal: Right shoulder evaluation has no obvious asymmetry or deformity. He has good range of motion with forward flexion of around 160 degrees, abduction of 150 degrees. He develops onset of pain around 100 degrees in both directions. External rotation with the arm at the side is around 25 degrees. Behind the back reach to low lumbar. He has pain and weakness associated with Hawkin's testing, Neer impingement testing and empty can testing. He has focal discomfort with palpation over the AC joint as well as the subacromial space. He also has pain with palpation of the proximal biceps tendon and the anterior and posterior glenohumeral joints. Full range of motion of his wrist, elbow, and digits. Strength is 5/5 for resisted biceps curl. Neurologic: Gross sensation is intact across the right arm by soft touch. Peripheral pulses are 2+. Results & Data Results & Data ([facility]) Diagnostic Findings Radiographic imaging previously obtained shows end-stage DJD of the glenohumeral joint. Periarticular osteophytes, subchondral sclerosis, and joint space narrowing are all present. He has [id number] in the glenohumeral joint. He has a large subacromial spur as well. 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 Code Status & VTE Plan VTE Prophylaxis Plan VTE Prophylaxis will be ordered: Yes
--- NOTE | 2021-07-05 06:21 | History & Physical Bridge Note ---
Date of Service July 05, 2021 History & Physical Bridge Note I have examined the patient, reviewed the History & Physical and in the interval since the performance of the History & Physical I have noted the following changes of clinical significance:consent obtained/site verified/covid screen negative. no changes noted
[~2021-07-05 08:35] MED LIST changes: +BUPIVACAINE LIPOSOME 1.3% 266 MG/20 ML VIAL ONE; -CHOL20007 PO; -CIPR-255 PO; -DOXY100C2 PO; -FEXO1TAB49 PO; -FINA5TAB PO; +LR 15ML/HR IV SCH; +LR 60ML/HR IV SCH; -NAPR-1169 PO; -TAMS0.4C38 PO; +TRANEXAMIC ACID 1,000 MG **IV Pre-op IV SCH; +ceFAZolin 2000MG 2,000 MG/15 ML SYR IV SCH
[2021-07-05] MEDS ORDERED: BUPIVACAINE 0.5 % 5 MG/1 ML PF 10ML VIAL ONE (08:41)
[2021-07-05] MEDS ORDERED: PROPOFOL IV EMULSION 10 MG/ML 20 ML VIAL IV ONE ×2 (10:31→13:25)
[2021-07-05] MEDS ORDERED: LIDOCAINE 2% 2 ML VIAL/AMP(20MG/ML) INFIL ONE (10:31)
[2021-07-05] MEDS ORDERED: fentaNYL citrate 100 MCG/2 ML VIAL ONE ×2 (10:32→11:55)
[2021-07-05] MEDS ORDERED: THROMBIN FOR SOLN 20000 UNIT KIT ONE (11:43)
[2021-07-05] MEDS ORDERED: DEXAMETHASONE SOD INJ 4 MG/ML VIAL ONE (12:05)
[2021-07-05] MEDS ORDERED: ONDANSETRON INJ 2 MG/ML 2 ML VIAL ONE (12:05)
[2021-07-05] MEDS ORDERED: ROCURONIUM BROMIDE 10 MG/ML 5 ML VIAL IV ONE (12:05)
[2021-07-05] MEDS ORDERED: PHENYLEPHRINE HCL 10 MG/ML VIAL ONE (12:34)
[2021-07-05] MEDS ORDERED: ePHEDrine sulfate 50 MG/ML SYR ONE (12:34)
[2021-07-05] MEDS ORDERED: HYDROmorphone INJ 1 MG/ML SYRINGE IV PRN (13:26)
[2021-07-05] MEDS ORDERED: LABETALOL HCL IV 5 MG/ML 20ML IV PRN (13:26)
[2021-07-05] MEDS ORDERED: ONDANSETRON INJ 2 MG/ML 2 ML VIAL IV PRN ×2 (13:26→15:24)
[2021-07-05] MEDS ORDERED: PROMETHAZINE HCL 12.5 MG in SODIUM CHLORIDE 0.9% 50 ML IV PRN (13:26)
[2021-07-05] MEDS ORDERED: fentaNYL citrate 100 MCG/2 ML VIAL IV PRN (13:26)
[2021-07-05] MEDS ORDERED: ePHEDrine sulfate 50 MG/ML AMP IV PRN (13:26)
[2021-07-05] MEDS ORDERED: ATROPINE SULFATE 0.1 MG/ML 10ML SYR IV PRN (13:26)
[2021-07-05] MEDS ORDERED: NALOXONE HCL 0.4 MG/1 ML VIAL/CARP IV PRN ×2 (13:26→15:24)
--- NOTE | 2021-07-05 13:57 | Post Operative Brief Note ---
Immediate Post Op Note v1 Date of Surgery July 05, 2021 Pre & Post Diagnosis Operation Date: 07/05/21 10:40 Pre-Op Diagnosis: Right Shoulder Osteoarthritis Post-Op Diagnosis: Right Shoulder Osteoarthritis I identified the patient and participated in the time-out.: Yes Procedure Operation Date: 07/05/21 10:40 Actual Procedures p Right Total Shoulder Arthroplasty, Cemented(Right) - Adebayo Raymond MD Surgeon Adebayo Raymond MD Field Crop Technical Officer Ken/Jaclyn Estimated Blood Loss 75 Findings Consistent with Post-Op Diagnosis
--- NOTE | 2021-07-05 14:12 | Operative Report ---
Post Operative Report Pre & Post Diagnosis Operation Date: 07/05/21 10:40 Pre-Op Diagnosis: Right Shoulder Osteoarthritis Post-Op Diagnosis: Right Shoulder Osteoarthritis I identified the patient and participated in the time-out.: Yes Procedure Operation Date: 07/05/21 10:40 Actual Procedures p Right Total Shoulder Arthroplasty, Cemented(Right) - Adebayo Raymond MD Surgeon Alexandrea Rogers MD Director Of Oncology Ken/Jaclyn Estimated Blood Loss 75 Findings Consistent with Post-Op Diagnosis Consistent with post op diagnosis. Specimens no specimens Description of Procedure I participated in prepping dressing and assisted Dr. Raymond during the procedure. Please see Dr. Raymond note. I attest to the content of the Intraoperative Record and any orders documented therein. Any exceptions are noted below. Supervising Physician Co-Signing Physician Notes Dr. Raymond.
--- NOTE | 2021-07-05 14:14 | Operative Report ---
Post Operative Report Pre & Post Diagnosis Operation Date: 07/05/21 10:40 Pre-Op Diagnosis: Right Shoulder Osteoarthritis Post-Op Diagnosis: Right Shoulder Osteoarthritis I identified the patient and participated in the time-out.: Yes Procedure Operation Date: 07/05/21 10:40 Actual Procedures p Right Total Shoulder Arthroplasty, Cemented(Right) - Adebayo Raymond MD Surgeon PAMELA Raymond MD Em Physician Ken/Jaclyn Estimated Blood Loss 75 Findings Consistent with Post-Op Diagnosis see operative report Specimens see operative report Drains none Complications none Disposition Accompanied Patient To Recovery: Yes Indications This 76-year-old male presented to the office with complaints of intractable right shoulder pain. He had tried conservative care measures without im provement. He elected to proceed with surgical intervention after being educated about potential risks and outcomes. Preoperative imaging was obtained. Description of Procedure Patient was administered a regional block and then taken to the operating room where he was given general anesthesia. He was prepped and draped in the usual sterile fashion. Please see Dr. Raymond's operative report for specifics of the procedure. I was present for the entire case for initial patient positioning through final wound closure. Assistance was provided in tissue retraction, hemostasis, trial implant placement, final implant placement, and final wound closure. Patient was taken to the recovery room in satisfactory condition. I attest to the content of the Intraoperative Record and any orders documented therein. Any exceptions are noted below.
--- NOTE | 2021-07-05 14:39 | XRay Report ---
SINGLE VIEW RIGHT SHOULDER CLINICAL HISTORY: Postoperative examination. FINDINGS: An AP portable view of the right shoulder is obtained. The skeletal structures are osteopen ic. A right shoulder arthroplasty is in near-anatomic alignment. No evidence of fracture is identifie d. The acromioclavicular joint is maintained. Soft tissue edema, soft tissue gas, and skin clips over lying the right shoulder are expected postoperative findings. The right lung parenchyma is clear as v isualized. IMPRESSION: Expected postoperative findings status post right shoulder arthroplasty. No acute fractur e is seen. Electronically signed by: Cole Rouse M.D. 07/05/2021 2:37 PM
--- NOTE | 2021-07-05 14:44 | Progress Notes ---
DATE OF SERVICE: 07/05/2021 SUBJECTIVE: Postop check status post right total shoulder replacement. The patient is doing well, s itting up comfortably. Denies chest pain, shortness of breath, fever, chills, nausea, vomiting or he adache. OBJECTIVE: VITAL SIGNS: Stable. He is afebrile. Neurovascular check is returning from his block. He has finger and wrist extension and flexion. Wou nd dressing clean, dry and intact. Postop x-rays look excellent. ASSESSMENT: Doing well status post right total shoulder replacement. Continue with postoperative ca re pathway. Discharge tomorrow. Job ID: [id number]
--- NOTE | 2021-07-05 14:57 | Operative Report (OR) ---
DATE OF PROCEDURE: 07/05/2021. SURGEON: Adebayo Raymond MD. STORE SALES MANAGER: Alexandrea Rogers MD. SECOND STORE SALES MANAGER: Valdez Anaya PA-C. PREOPERATIVE DIAGNOSIS: Osteoarthritis, right shoulder. POSTOPERATIVE DIAGNOSIS: Osteoarthritis, right shoulder. OPERATION PERFORMED: Cemented glenoid, porous coated humerus, right total shoulder replacement. SUMMARY OF IMPLANTS: Size 52 keeled glenoid, size 14 stem Porocoat size 52 x 18 standard head. One bag of Palacos G cement. ESTIMATED BLOOD LOSS: 75 mL CRYSTALLOID: Per anesthesia. PATHOLOGY: Pending on bone. DVT prophylaxis with aspirin. PERIOPERATIVE SITUATION: Medically cleared male with intractable shoulder pain. Physical exam revea ls end-stage disease. Wants to proceed with surgical treatment. DESCRIPTION OF PROCEDURE: The patient was appropriately identified, site verified, consent verified. Antibiotics were confirmed as being given. The right upper extremity was prepped and draped in usu al routine fashion. A deltopectoral approach to the shoulder was then made. Care was taken to prote ct the cephalic vein. The deltopectoral interval was opened and the clavipectoral fascia was opened and a retractor was placed deep. The subdeltoid space was opened. The subscapularis was then tagged . The biceps was then released. There was extensive disease there, it was tagged for later tenodesis . The subscapularis was then subperiosteally peeled off, the capsule then released off the inferior humeral neck by rotating osteophytes resected. Once this was done, the humeral head was resected. This allowed additional osteophytes to be resecte d from the posterior side. The humerus was then broached up to a 14 with excellent positioning. The retractors were then placed for the glenoid, labrum was excised completely and then the alfonso hole ma de. Osteophytes resected with hand reamers and then the alfonso hole deepened, this allowed increased m edialization with a curette and a bur with care taken not to penetrate. Once this was done, the trial fit well. The wound was irrigated, then trialed and placed several pockmarks made in the sclerotic surface of the glenoid. Once this was all irrigated out, the permanent glenoid was cemented into pos ition. After 14 minutes, everything was stable. The wound was then irrigated. The humerus was then completed with a 14 stem and 18 standard head with excellent positioning and mobilization. Prior to impacting the stem completely, the sutures were placed through the humerus and around the stem. The y were tightened on this. This allowed excellent fixation of the subscapularis to the humerus. Additional sutures were placed to close the rotator interval with #1 Vicryl. The tenodesis was then carried out with a stitch on the biceps and then tied to the subscapularis sutures. This allowed a t enodesis to be complete. The wound was irrigated one final time and closed with 0 Vicryl, 2-0 Vicryl and stainless steel clips. Appropriate dressing applied. The patient was transferred to recovery r o in satisfactory condition, having tolerated the procedure well. Again summary of implants was 52 keeled glenoid 14 Porocoat stem, 52 x 18 standard head. Bone pathol ogy pending. Aspirin for DVT prophylaxis. EBL 75 mL. Crystalloid per anesthesia. Job ID: [id number]
--- NOTE | 2021-07-05 15:07 | Anesthesiology Progress Note ---
Date of Service July 05, 2021 Anesthesia Post Procedure Vital Signs Vital Signs: Temp Pulse Pulse Resp BP Pulse Ox 07/05/21 14:50 76 15 152/69 H 94 07/05/21 14:40 36.4 C L 79 19 134/80 95 07/05/21 14:30 80 15 142/66 H 99 07/05/21 14:20 77 14 159/85 H 100 07/05/21 14:10 36.0 C L 85 14 175/76 H 98 07/05/21 08:56 36.8 C 70 20 131/79 96 Transfer of Care Handoff Completed per policy Notes Mental Status: alert / awake / arousable Patient Amnestic to Procedure: Yes Nausea / Vomiting: adequately controlled Pain: adequately controlled Airway Patency, RR, SpO2: stable & adequate BP & HR: stable & adequate Hydration State: stable & adequate Anesthetic Complications: no major complications apparent
[2021-07-05] MEDS ORDERED: oxyCODONE HCL IR 5 MG TAB (IMMEDIATE RELEASE) PO PRN (15:24)
[2021-07-05] MEDS ORDERED: bisacodyL 10 MG SUPP PR PRN (15:24)
[2021-07-05] MEDS ORDERED: ALUMINUM/MAGNESIUM SUSP 30 ML UDC PO PRN (15:24)
[2021-07-05] MEDS ORDERED: SODIUM CHLORIDE 0.9% 1000ML 1,000 ML IV SCH (15:24)
[2021-07-05] MEDS ORDERED: HYDROmorphone INJ 0.5 MG/0.5 ML SYR IV PRN (15:24)
[2021-07-05] MEDS ORDERED: diphenhydrAMINE 50 MG/ML VIAL IV PRN (15:24)
[2021-07-05] MEDS ORDERED: MAGNESIUM HYDROXIDE SUSP 30 ML UDC PO PRN (15:24)
[2021-07-05] MEDS ORDERED: METOCLOPRAMIDE HCL INJ 5 MG/ML 2 ML VIAL IV PRN (15:24)
--- NOTE | 2021-07-05 15:27 | Discharge Summary (DS) ---
DATE OF ADMISSION: 07/05/2021. DATE OF SURGERY: 07/06/2021. CHIEF COMPLAINT: Right shoulder pain. HISTORY OF PRESENT ILLNESS: Underwent elective right total shoulder replacement. At this point in [facility], he is doing well. He denies any chest pain, shortness of breath, fever, chills, nausea, vomiting, headache. Postoperative x-rays look excellent. Will be discharged on all of his medications including pain med ication and aspirin for blood thinning. PAST MEDICAL AND PAST SURGICAL HISTORY: Remarkable for BPH, depression, GERD, glaucoma, osteoarthrit is, sleep apnea, CPAP compliant. History of colonoscopy, tonsillectomy and glaucoma surgery. FAMILY HISTORY: Remarkable for cancer, diabetes, heart disease, stroke. SOCIAL HISTORY: Reveals he does not smoke. Social alcohol only. Has a spouse, lives at home. Feels safe. REVIEW OF SYSTEMS: Noncontributory. Again, postoperative x-rays look good. ASSESSMENT: Doing well status post right total shoulder replacement home tomorrow. Dressing change and PT. Job ID: [id number]
[2021-07-05] MEDS ORDERED: COUGH DROP (SUGAR FREE) LOZ 24 LOZ/1 BOX BUCCAL PRN (16:13)
[2021-07-05] MEDS ORDERED: Nursing to Pharmacy Communication SCH (16:15)
[2021-07-05] MEDS: KETOROLAC TROMETHAMINE 15 MG/ML VIAL IV SCH ×2 (16:17→20:44)
[2021-07-05] MEDS: ASCORBIC ACID 500 MG TAB PO SCH (17:48)
[2021-07-05] MEDS: FERROUS GLUCONATE 324 MG TAB PO SCH (17:48)
[2021-07-05] MEDS ORDERED: TRANEXAMIC ACID / 0.7% NACL 1,000 MG/100 ML BAG IV SCH (20:30)
[2021-07-05] MEDS: ceFAZolin 2000MG 2,000 MG/15 ML SYR IV SCH (20:36)
[2021-07-05] MEDS: DOCUSATE SODIUM 100 MG CAP PO SCH (20:43)
[2021-07-05] MEDS: ASPIRIN 325 MG ECTAB PO SCH (20:44)
[2021-07-05] MEDS: TAMSULOSIN HCL 0.4 MG CAP PO SCH (20:44)
[2021-07-05] MEDS ORDERED: ROSUVASTATIN CALCIUM 10 MG TAB PO SCH (21:00)
[2021-07-05] MEDS ORDERED: SENNA 8.6 MG TAB PO SCH (21:00)
[2021-07-05] MEDS ORDERED: DOXYCYCLINE HYCLATE 50 MG CAP PO SCH (21:00)
[2021-07-05] MEDS: ACETAMINOPHEN 500 MG TAB PO SCH (21:11)
[2021-07-06] MEDS: KETOROLAC TROMETHAMINE 15 MG/ML VIAL IV SCH ×2 (03:41→08:14)
[2021-07-06] MEDS: ceFAZolin 2000MG 2,000 MG/15 ML SYR IV SCH (03:41)
[2021-07-06] MEDS: ACETAMINOPHEN 500 MG TAB PO SCH (05:59)
[2021-07-06 06:33] LABS: Basophils # (auto) 0.01 K/uL (0-0.2); Basophils % (auto) 0.1 %; Eosinophils # (auto) 0.01 K/uL (0-0.5); Eosinophils % (auto) 0.1 %; Hematocrit (blood only) 38.4 % (42-52); Hemoglobin 12.7 g/dL (14.0-18.0); Immature Granulocytes # (auto) 0.03 K/uL (0.00-0.02); Immature Granulocytes % (auto) 0.2 %; Lymphocytes # (auto) 0.96 K/uL (1.2-3.4); Lymphocytes % (auto) 7.1 %; Mean Corpuscular Hemoglobin 31.5 pg (25-34); Mean Corpuscular Hgb Conc 33.1 g/dL (32-36); Mean Corpuscular Volume 95.3 fL (80-100); Mean Platelet Volume 9.7 fL (7.4-10.4); Monocytes % (auto) 7.4 %; Neutrophils # (auto) 11.52 K/uL (1.4-6.5); Neutrophils % (auto) 85.1 %; Platelet Count 241 K/uL (130-400); RDW Coefficient of Variation 12.9 % (11.5-14.5); RDW Standard Deviation 45.3 fL (36.4-46.3); Red Blood Count 4.03 M/uL (4.7-6.1); White Blood Count 13.53 K/uL (4.8-10.8)
[2021-07-06 06:56] LABS: BUN Creatinine Ratio 22.9 (10-20); Calcium 8.8 mg/dl (8.5-10.1); Creatinine Clr Calc Pharmacy 76.4 ml/min; Est GFR (African American) 89.9 ml/min; Est GFR (Non-African American) 77.6 ml/min; Potassium 4.3 mmol/L (3.5-5.1)
--- NOTE | 2021-07-06 07:10 | Progress Notes ---
SUBJECTIVE: The patient is doing well. Denies any real problems. He is sitting up relaxing. He kn ows that the block is still in place. OBJECTIVE: Vital signs are stable. He is afebrile. Neurovascular check revealed some axillary nerve function and some sensation. He has some hand funct ion. Wound dressing is clean, dry and intact. ASSESSMENT AND PLAN: Doing well status post right total shoulder replacement. Discharged home today . Dressing change and PT. Job ID: [id number]
[2021-07-06] MEDS ORDERED: dexAMETHasone 10 MG in SYRINGE 0 ML IV SCH (08:00)
[2021-07-06] MEDS: DOCUSATE SODIUM 100 MG CAP PO SCH (08:14)
[2021-07-06] MEDS: TAMSULOSIN HCL 0.4 MG CAP PO SCH (08:16)
[2021-07-06] MEDS: ASPIRIN 325 MG ECTAB PO SCH (08:16)
[2021-07-06] MEDS: ASCORBIC ACID 500 MG TAB PO SCH (08:17)
[2021-07-06] MEDS: FERROUS GLUCONATE 324 MG TAB PO SCH (08:17)
[2021-07-06] MEDS ORDERED: MULTIVITAMIN TAB PO SCH (09:00)
[2021-07-06] MEDS ORDERED: FLUoxetine HCL 20 MG CAP PO SCH (09:00)
[2021-07-06] MEDS ORDERED: FINASTERIDE 5 MG TAB PO SCH (09:00)
[2021-07-06] MEDS ORDERED: PANTOprazole 40 MG TAB PO SCH (09:00)
--- NOTE | 2021-07-06 09:31 | Orthopedic Progress Note ---
Date of Service July 06, 2021 Assessment & Plan (1) S/P shoulder surgery: Plan: Patient was educated regarding today's findings. Conservative care measures were discussed. He has PT scheduled for 1030 this morning at the office. Dressing change will be performed there. Continue with the sling for support and protection. He is aware that the nerve block is still active and his arm will continue to wake up over the next several hours. Limitations in motion and sensation are likely from the nerve block. Follow-up in the office as scheduled. Continue on his aspirin twice a day x4 weeks. Prescription for Percocet was sent to his pharmacy. Written discharge instructions were provided. Admission and Anticipated Discharge Date Admission Date: July 05, 2021 Subjective Patient is seen in his room this morning. States he slept fairly well. He did have some interruptions overnight. He denies any shoulder pain. Denies any ch est pain, shortness of breath, nausea, vomiting, or abdominal pain. He feels ready for discharge. He does note that his right arm is still numb. He notes some early sensation in the fingers but states most of them are tingly. Review of Systems Review of Systems: Unchanged from yesterday. Physical Exam Physical Exam: General: Well-developed, well-nourished, elderly white male, in no acute distress. Sitting in bed. Alert and oriented. Conversive. Skin: Warm and dry with good turgor. No rashes. He has an intact postsurgical bandage on the right shoulder. There is no bleeding visible through the dressi ngs. No ecchymosis or edema in the right arm at this time. Musculoskeletal: Patient has limited motion of the wrist and digits of the right arm. He is able to to flex the fingers. He has very limited extension in all of the digits, including the thumb. He is unable to extend the wrist. Shoulder motion was not attempted. Neurologic: Gross sensation is darting to occur in the right arm. He does have some intact sensation across the tricep as well as the back of the hand and thumb through ring fingers. He states sensation is blunted. His little finger is entirely numb. Peripheral pulses are 2+. Capillary refill is equal for each of the fingers. Results & Data ([facility]) Vital Signs (Past 12 Hours) Vital Signs Temp Pulse Resp BP Pulse Ox 07/06/21 08:00 36.9 C 70 16 125/69 93 04/07/22 07:11 36.9 C 70 16 125/69 93 07/06/21 03:00 36.5 C 79 16 132/72 94 07/05/21 22:39 36.7 C 74 16 116/68 94 Laboratory Results H&H obtained today are 12.7 and 38.4. White count of 13.5. PRP is unremarkable.
== END 2021-07-06 10:21 | disposition home or self-care (01) ==
LOC: 3E 08:35 → ASU 08:35